=== PATIENT | male | born 1960 | race African-American/Black ===

== ENCOUNTER 2023-03-28 16:12 | Outpatient (AMB) | payer OTHER, SELFPAY ==
--- NOTE | 2023-03-28 16:21 | A.OFFPC_ITS ---
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: No Accompanied by: Daughter Allergies No Known Allergies Allergy (Verified 03/28/23 16:49) Medication List - Last Reconciled 03/28/23 by Alfonso Ramirez MD tamsulosin 0.4 mg PO DAILY Tobacco use date assessed: 03/28/23 Fall risk assessment: No Falls in past year Last assessed Fall Risk: 03/28/23 Dental Screening Dental Screen Date: 03/28/23 Did you have a dental visit in the last 12 months?: No Did you have a dental problem in the last 6 months where you did not have access to dental care?: No Was dental information given to patient?: No HPI Director Of Product Design Request PE HPI Details Patient comes in today for his annual physical examination and to establish care - is a new patient to the practice Patient states that he recently moved here from [facility] and that he mainly needs his Tamsulosin Rx refilled - has been on this Rx for about 5 to 6 years now Would also like to get a referral to see urology here locally as he has not seen a doctor yet since moving here to [facility] [place] (+) blurring of vision as well and states that he has been advised a couple of years ago that he has cataracts in his eyes He denies any headaches or dizziness Denies any chest pains, no shortness of breath No nausea/vomiting, no abdominal pain No change in bowel habits noted Denies any acute urinary symptoms as long as continues on his Tamsulosin States that he had his last screening colonoscopy done a few years ago but he cannot recall exactly when - thinks it might be close to about 10 years now Also needs his Mometasone cream Rx refilled - states that he uses this for some recurrent rash on his feet (in between his toes) PFSH Medical History Benign localized hyperplasia of prostate with urinary obstruction Hyperlipidemia Impaired fasting glucose Surgical History Hx of colonoscopy Social History Housing: House Patient Tobacco Use Status: Never used Tobacco e-Cigarette/Vaping Use: Never Used service: No Current occupational status: unemployed Current occupational exposures/hazards: No Cognitive needs: No Hearing needs: No Vision needs: No Questionnaire PHQ-9 Over the last 2 weeks, how often have you been bothered by any of the following problems? 1. Little interest or pleasure in doing things: not at all 2. Feeling down, depressed, or hopeless: not at all 3. Trouble falling or staying asleep, or sleeping too much: not at all 4. Feeling tired or having little energy: not at all 5. Poor appetite or overeating: not at all 6. Feeling bad about yourself - or that you are a failure or have let yourself or your family down: not at all 7. Trouble concentrating on things, such as reading the newspaper or watching television: not at all 8. Moving or speaking so slowly that other people could have noticed. Or the opp osite - being so fidgety or restless that you have been moving around a lot more than usual: not at all 9. Thoughts that you would be better off or of hurting yourself in some way: not at all Total score: 0 Depression Screening Interpretation: Negative Depression Screening Done: Yes 60549 - PHQ-9 Billing: Yes Source: Developed by Drs. Davion Alexander, Mickie Mclean, Familia Pablo and colleagues, with an educational alessandro from [employer]. Thrive Questionnaire Date Thrive assessed: 03/28/23 I am a: Patient What is your living situation today?: I have a steady place to live Within the past 12 months, did the food you bought not last and you didn't have the money to get more?: Never true Within the past 12 months, did you worry whether your food would run out before you got money to buy more?: Never true Do you have trouble paying for medicines?: No Do you have trouble getting transportation to medical appointments?: No Do you have trouble paying your heating and electricity bill?: No Do you have trouble taking care of your child, family member or friend?: No Do you have trouble with day-to-day activities such as bathing, preparing meals, shopping, managing finances, etc.?: No Are you currently unemployed and looking for a job?: No Are you interested in more education?: No Please select the resources that you would like help with: None Currently or been in a relationship where the following occur: no concerns reported THRIVE Score: 0 AUDIT C Alcohol Use Questionnaire (AUDIT-C) 1. How often do you have a drink containing alcohol?: Never 3. How often do you have six or more drinks on one occasion?: Never Total Score: 0 Score Reviewed/Action Taken: Yes NASH-7 AMB Questionnaire NASH-7 Date NASH - 7 assessed: 03/28/23 Feeling nervous, anxious, or on edge: 0 = Not at all Not being able to stop or control worryin = Not at all Worrying too much about different things: 0 = Not at all Trouble relaxin = Not at all Being so restless that it is hard to sit still: 0 = Not at all Becoming easily annoyed or irritable: 0 = Not at all Feeling afraid as if something awful might happen: 0 = Not at all Total NASH-7 score (0-4 normal; 5-9 mild; 10-14 moderate; 15-21 severe): 0 Source: Developed by Drs. Davion Alexander, Mickie Mclean, Familia Pablo and colleagues, with an educational alessandro from [employer]. Review of Systems Const Denies chills, Denies fatigue, Denies fever(s), Denies headache(s), Denies malaise and Denies weakness Eyes Denies blurry vision, Denies change in vision, Denies irritation and Denies itchy eyes ENT Denies dysphagia, Denies dizziness, Denies otalgia, Denies headache(s), Denies nasal congestion, Denies neck pain, Denies odynophagia and Denies sore throat Card Denies chest pain, Denies rapid heart rate, Denies irregular heart rhythm, Denies palpitations and Denies dyspnea Resp Denies chest congestion, Denies cough, Denies dyspnea and Denies wheezing GI Denies abdominal pain, Denies bloating, Denies constipation, Denies dysphagia, Denies heartburn, Denies diarrhea, Denies nausea, Denies odynophagia and Denies vomiting Denies hematuria, Denies difficulty urinating, Denies dysuria, Denies urinary frequency and Denies urinary urgency Musc Denies back pain, Denies arthralgias, Denies joint swelling, Denies muscle weakness and Denies neck pain Skin/Breast Denies change in pigmentation, Denies lesions, Denies rash and Denies unusual bruising Neuro Denies dizziness, Denies headache(s), Denies paresthesias and Denies weakness Endo Denies fatigue and Denies palpitations Aller/Immun Denies itchy eyes and Denies wheezing Physical exam (Primary Care) Vital Signs: Last Vital Signs Pulse 79 03/28/23 16:23 BP 132/70 03/28/23 16:23 Pulse Ox 97 03/28/23 16:23 Oxygen Delivery Method Room Air 03/28/23 16:23 BMI result Body Mass Index 23.3 Tobacco/Smoking Status: Tobacco use Status Tobacco use date assessed 03/28/23 03/28/23 16:32 Patient Tobacco Use Status Never used Tobacco 03/28/23 16:32 e-Cigarette/Vaping Use Never Used 03/28/23 16:32 PHQ-9: PHQ-9 Score PHQ-9: Total score 0 03/28/23 16:57 Depression Screening Interpretation: Negative Thrive Assessment: Date of Thrive Assessment Date Thrive assessed 03/28/23 03/28/23 16:32 Currently or been in a relationship where the following occur: no concerns reported Const General: no acute distress, alert and awake Orientation/consciousness: patient oriented x3 HENMT Head: Yes normocephalic and Yes atraumatic Ears: external ears normal, TM's normal bilaterally and EAC's normal General nose exam: No nasal discharge present Face and sinus: Yes normal facial exam and Yes sinuses nontender Teeth and gingiva: dentition normal Throat: Yes posterior oropharynx normal and Yes tonsils normal (no TP congestion) Eyes Eyelids: Yes eyelids normal Conjunctivae: conjunctivae normal Pupils: Equal, round and reactive pupils present EOM: EOMs intact bilaterally Neck Neck: Yes no lymphadenopathy and Yes supple Thyroid: Thyroid normal Resp Auscultation: clear to auscultation bilaterally, no rales and no wheezes Cardio Rate: regular rate Rhythm: regular rhythm Heart sounds: no murmurs GI Palpation (GI): Soft to palpation, nontender and No hepatosplenomegaly present Auscultation: normal bowel sounds General: Yes no CVA tenderness Back/Spine/Pelvis Back: no CVA tenderness Thoracic/Lumbar Spine: thoracic and lumbar spine normal to inspection Skin Lesions: no lesions Rashes: no rashes Neuro General: patient oriented x3, moves all extremities, no focal motor deficits and CN's II-XI intact bilaterally Cranial nerves: Yes Equal, round and reactive pupils present Cognition (Neuro): normal cognition Gait exam (Neuro): Normal gait present Extrem General: Yes no clubbing, cyanosis or edema Assessment and Plan Assessment & Plan (1) Annual physical exam: Code(s): Z00.00 - Encounter for general adult medical examination without abnormal findings Plan: Check labs Have instructed patient to try to obtain more information on when he last had his colonoscopy done and we will plan on having him get his repeat colonoscopy next year if the timing on when his next colonoscopy is due is close (2) Impaired fasting glucose: Code(s): R73.01 - Impaired fasting glucose Plan: Will check his FBS and HgbA1c for further evaluation Reinforced low calorie/low carb diet (3) Hyperlipidemia: Code(s): E78.5 - Hyperlipidemia, unspecified Qualifiers: Hyperlipidemia type: unspecified Qualified Code(s): E78.5 - Hyperlipidemia, unspecified Plan: Reinforced low cholesterol diet Will check his fasting lipids for follow up (4) Benign localized hyperplasia of prostate with urinary obstruction: Code(s): N40.1 - Benign prostatic hyperplasia with lower urinary tract symptoms; N13.8 - Other obstructive and reflux uropathy Plan: Continue Tamsulosin 0.4 mg Q HS - Rx refilled Will refer him to urology for further management (5) Dermatitis: Code(s): L30.9 - Dermatitis, unspecified Plan: Continue Mometasone 0.1% cream BID PRN - Rx refilled, per request (6) Vision impairment: Code(s): H54.7 - Unspecified visual loss Plan: (+) Hx of cataracts Will refer him to ophthalmology for further management Plan Follow up in 6 months Orders: Orders Comprehensive [place]. Panel Fast 03/28/23 E78.00 - Pure hypercholesterolemia, unspecified, Z00.00 - Encounter for general adult medical examination without abnormal findings Lipid Panel 03/28/23 E78.00 - Pure hypercholesterolemia, unspecified, Z00.00 - Encounter for general adult medical examination without abnormal findings TSH reflex Free T4 03/28/23 E78.00 - Pure hypercholesterolemia, unspecified, Z00.00 - Encounter for general adult medical examination without abnormal findings UA CC w/rflx Micro + Cult 03/28/23 R30.0 - Dysuria, Z00.00 - Encounter for general adult medical examination without abnormal findings Prostate Specific Antigen 03/28/23 N40.0 - Benign prostatic hyperplasia without lower urinary tract symptoms, Z00.00 - Encounter for general adult medical examination without abnormal findings Complete Blood Count Auto Diff 03/28/23 D64.9 - Anemia, unspecified, Z00.00 - Encounter for general adult medical examination without abnormal findings Vitamin D 25-OH Total 03/28/23 E55.9 - Vitamin D deficiency, unspecified, Z00.00 - Encounter for general adult medical examination without abnormal findings Hemoglobin A1c 03/28/23 R73.01 - Impaired fasting glucose, Z00.00 - Encounter for general adult medical examination without abnormal findings XR knee standing BI 03/28/23 M25.561 - Pain in right knee, M25.562 - Pain in left knee Referrals Urology Referral N13.8 - Other obstructive and reflux uropathy, N40.1 - Benign prostatic hyperplasia with lower urinary tract symptoms Ophthalmology Referral H54.7 - Unspecified visual loss Medications: New tamsulosin 0.4 mg PO DAILY 90 days 90 caps 1RF N13.8 - Other obstructive and reflux uropathy, N40.1 - Benign prostatic hyperplasia with lower urinary tract symptoms mometasone 0.1% 1 appl topical BID PRN 45 grams 3RF rash L30.9 - Dermatitis, unspecified Coding Level of Care Code New Pt Prev Care 40-64y(08821) Diagnoses Annual physical exam Z00.00 Impaired fasting glucose R73.01 Hyperlipidemia, unspecified hyperlipidemia type E78.5 Hyperlipidemia type: unspecified Benign localized hyperplasia of prostate with urinary obstruction N40.1; N13.8 Dermatitis L30.9 Vision impairment H54.7
[2023-03-28 16:23] VITALS: BP 132/70; PULSE 79; O2SAT 97; BMI 23.3
== END 2023-03-28 17:10 | disposition home or self-care (01) ==
PROVIDERS: PCP Internal Medicine; Visit Provider Internal Medicine
DX: Z00.00 Encounter for general adult medical examination without abnormal findings (principal); R73.01 Impaired fasting glucose; E78.5 Hyperlipidemia, unspecified; N40.1 Benign prostatic hyperplasia with lower urinary tract symptoms; N13.8 Other obstructive and reflux uropathy; L30.9 Dermatitis, unspecified; H54.7 Unspecified visual loss
CPT/HCPCS: 99386; 99387

== ENCOUNTER 2023-05-20 10:54 | Outpatient (AMB) | payer OTHER, SELFPAY ==
--- NOTE | 2023-05-20 11:02 | A.OFFVIS_ITS ---
Intake Intake Visit Reasons: BPH with LUTS Intake Note: New Patient presents today to establish treatment for: BPH w LUTS Meds- Tamsulosin Allergies to Antibiotic- No Known Allergies Blood Thinner- None Post Void Residual: 45ml Patient stated he wakes up about 3 times at night to urinate. Turkey Roll Maker Required: No Accompanied by: Daugther Allergies No Known Allergies Allergy (Verified 05/20/23 11:51) Medication List - Last Reconciled 05/20/23 by ADAM Hutchisnon- tamsulosin 0.8 mg (2 x 0.4 mg) PO DAILY 90 days HPI HPI Comments History of Present Illness Details Kaden is a pleasant 72 year old male patient of Dr. Ramirez?was accompanied by his daughter at today's office visit. He has a past medical history of BPH, hyperlipidemia, and impaired fasting glucose. He presents to the office today as a new patient for ongoing lower urinary tract symptoms. In discussion with the patient today he reports feeling incomplete bladder emptying, weak stream, and nocturia. He discusses these symptoms to have been present for many years. He reports having started Flomax many years ago and felt this was initially helpful however continues with weak urinary stream, nocturia, and feeling of incomplete bladder emptying. In office urinalysis results reviewed with the patient today. Microscopic hematuria noted. When asked he denies any previous history of smoking and or workplace known workplace chemical exposure. He otherwise denies urinary urgency, incontinence, hematuria, dysuria, foul smelling urine, flank pain, fever, and or chills. PVR 45 mLs. He does discuss having issues with ED in the past however is not sexually active with anyone at this time. He does report to be masturbating and having no issues obtaining and maintaining erections while doing so. YAMILETH; smooth and no suspicious nodules palpated. He otherwise offers no other issues or concerns at this time. [facility] Medical History Benign localized hyperplasia of prostate with urinary obstruction Hyperlipidemia Impaired fasting glucose Surgical History Hx of colonoscopy Social History Housing: House Patient Tobacco Use Status: Never used Tobacco e-Cigarette/Vaping Use: Never Used service: No Current occupational status: unemployed Current occupational exposures/hazards: No Cognitive needs: No Hearing needs: No Vision needs: No Review of Systems Const All systems reviewed & are unremarkable except as noted in HPI and below Physical Exam Const General: cooperative, healthy appearing, comfortable, no acute distress, well developed, alert and awake Nutritional Appearance: average body habitus Orientation/consciousness: patient oriented x3 Limitations: no limitations HEENT Head: Yes normal to inspection, Yes normocephalic and Yes atraumatic Ears: hearing grossly normal bilaterally Eyes General: appearance normal, both eyes and all related structures Neck Neck: Yes normal visual inspection and Yes trachea midline Chest Chest palpation & inspection: normal inspection of the chest Resp Effort & Inspection: normal respiratory effort and able to speak in complete sentences Cardio Rate: regular rate GI Inspection: Yes normal to inspection General: Yes no CVA tenderness Back/Spine/Pelvis Back: no CVA tenderness Skin General skin exam: no rashes or lesions noted Neuro General: patient oriented x3 Extrem General: Yes normal to inspection Psych Appearance: grossly normal and well kempt Mental Status: mental status grossly normal Speech and movement: Normal speech and movement present and Clear speech present Affect: normal affect Attitude: cooperative Thought process: Normal thought process present Thought content: Normal thought content present Insight: Fair insight present (Psych) Judgement: Fair judgement present (Psych) Office Procedures Post Void Residual Post Residual Void Post Void Residual (PVR): 45 [id number] Void Residual by ultrasound Results AMB Urinalysis, Automated UA Leukoctes 0 Tapan/uL Last Edit by Ragini Khan CMA on 05/20/23 11 :19 UA Nitrite Negative Last Edit by Ragini Khan CMA on 05/20/23 11: 19 UA Urobilinogen 0.2 mg/dL Last Edit by Ragini Khan CMA on 4 11:19 UA Protein 0 mg/dL Last Edit by Ragini Khan CMA on 05/20/23 11:19 UA pH 6.0 Last Edit by Ragini Khan [facility] on 05/20/23 11:19 UA Blood 10 Hang/uL Last Edit by Ragini Khan [facility] on 05/20/23 11:19 UA Specific [place] 1.010 Last Edit by Ragini Khan [facility] on 11:19 UA Ketone Negative Last Edit by Ragini Khan [facility] on 05/20/23 11:1 9 UA Bilirubin 0 mg/dL Last Edit by Ragini Khan [facility] on 05/20/23 11: 19 UA Glucose 0 mg/dL Last Edit by Ragini Khan [facility] on 05/20/23 11:19 Results Reviewed Results Reviewed: Laboratory Last Values Urine pH (Auto) 6.0 05/20/23 11:05 Specific [place] (Auto) 1.010 05/20/23 11:05 Urine Protein (Auto) 0 mg/dL 05/20/23 11:05 Glucose (UA)(Auto) 0 mg/dL 05/20/23 11:05 Urine Ketones (Auto) Negative 05/20/23 11:05 Urine Blood (Auto) 10 Hang/uL 05/20/23 11:05 Urine Nitrite (Auto) Negative 05/20/23 11:05 Urine Bilirubin (Auto) 0 mg/dL 05/20/23 11:05 Urine Urobilinogen (Auto) 0.2 mg/dL 05/20/23 11:05 Leukocyte Esterase (Auto) 0 [place]/uL 05/20/23 11:05 Assessment & Plan Assessment & Plan (1) Weak urinary stream: Code(s): R39.12 - Poor urinary stream (2) Feeling of incomplete bladder emptying: Code(s): R39.14 - Feeling of incomplete bladder emptying (3) Nocturia: Code(s): R35.1 - Nocturia Plan In office urinalysis results reviewed with the patient today; as noted above; will send for urine cytology PVR 45 mL. Discussed at length potential causes for lower urinary tract symptoms patient is experiencing. Discussed importance of limiting fluids 3-4 hours prior to bed to assist with decreasing episodes of nocturia. YAMILETH performed Discussed at length potential causes of microscopic hematuria; discussed surveillance monitoring verses further workup with imaging, cytology, and in office cystoscopy; risks and benefits of these interventions were discussed at length. Will increase Flomax to 0.8 mg daily Will obtain PSA for further assessment evaluation. Will obtain retroperitoneal ultrasound for further assessment evaluation. Discussed potential for near future in office urodynamics and or cystoscopy for further assessment evaluation. Discussed bladder triggers/irritants. Follow-up in 1-3 months with imaging and labs to be completed prior; or sooner with any issues, concerns, and or questions. Orders: Orders AMB Post Void Residual by ultrasound Today R33.9 - Retention of urine, unspecified Urine Cytology Today R31.29 - Other microscopic hematuria US retroperitoneal comp Today R35.1 - Nocturia, R39.12 - Poor urinary stream, R39.14 - Feeling of incomplete bladder emptying Prostate Specific Antigen Today R35.1 - Nocturia, R39.12 - Poor urinary stream, R39.14 - Feeling of incomplete bladder emptying AMB Urinalysis Automated Today R33.9 - Retention of urine, unspecified Medications: Changed From tamsulosin 0.4 mg PO DAILY 90 days 90 caps 1RF N13.8 - Other obstructive and reflux uropathy, N40.1 - Benign prostatic hyperplasia with lower urinary tract symptoms To tamsulosin 0.8 mg (2 x 0.4 mg) PO DAILY 180 caps 1RF 90 days N13.8 - Other obstructive and reflux uropathy, N40.1 - Benign prostatic hyperplasia with lower urinary tract symptoms Patient Instructions: The patient had an opportunity to ask questions regarding the treatment plan. All questions were answered. Physical exam, labs, and imaging were discussed and reviewed in detail. As well as risks, benefits, and discussion of treatment choices. No major barriers to understanding were identified. The patient expressed understanding and agreement with the above treatment plan. The patient was made aware they should contact our office by phone for worsening of their current condition, the appearance of new symptoms, or with any questions or concerns. Compliance is encouraged with any medications and follow up testing that is ordered. It is a privilege to be allowed the opportunity to participate in? your urological care.? Again, if you have any questions or concerns If you have any questions or concerns please do not hesitate to contact me. The office is [phone]. This note is constructed using voice recognition software. While every effort has been made to ensure accuracy secret code expert errors may have been included. Yours sincerely, ADAM Hutchinson- Coding Level of Care Code New Pt Level 4 (71330) Diagnoses Weak urinary stream R39.12 Feeling of incomplete bladder emptying R39.14 Nocturia R35.1 CPT Codes Post Residual Void - PVR CPT Code: 02551-Zrdh Void Residual by ultrasound ([id number]) Time Spent (min) 30
== END 2023-05-20 11:57 | disposition home or self-care (01) ==
PROVIDERS: PCP Internal Medicine; Visit Provider Nurse Practitioner Family
DX: R39.12 Poor urinary stream (principal); R39.14 Feeling of incomplete bladder emptying; R35.1 Nocturia
CPT/HCPCS: 99204

== ENCOUNTER 2023-05-20 10:54 | Outpatient (REF) | payer OTHER, SELFPAY ==
[2023-05-20 17:34] LABS: Urine Cytology See Pathology rpt
== END 2023-05-20 10:55 | disposition home or self-care (01) ==
LOC: HO.LAB 10:54
PROVIDERS: PCP Internal Medicine; Visit Provider Nurse Practitioner Family
DX: N40.1 Benign prostatic hyperplasia with lower urinary tract symptoms (principal); R39.14 Feeling of incomplete bladder emptying; R39.12 Poor urinary stream; R35.1 Nocturia; R33.8 Other retention of urine; R31.29 Other microscopic hematuria
CPT/HCPCS: 51798; 81003; 88112; 99202

== ENCOUNTER 2023-06-30 13:26 | Outpatient (REF) | payer OTHER, SELFPAY ==
--- NOTE | ~2023-06-30 | US_ITS ---
EXAMINATION: US RETROPERITONEAL COMPLETE (RENAL) CLINICAL INFORMATION: Nocturia. COMPARISON: None available. TECHNIQUE: Real-time imaging of the kidneys and bladder. Limited visualization due to bowel gas. FINDINGS: RIGHT KIDNEY: 7.6 x 3.6 x 4.6 cm (SAG x AP x TRV). No hydronephrosis. No renal calculi. Renal cortical thickness is normal. Limited visualization. LEFT KIDNEY: 8.0 x 4.0 x 4.8 cm (SAG x AP x TRV). No hydronephrosis. No renal calculi. Renal cortical thickness is normal. Limited visualization. BLADDER: Well-distended. Mild diffuse irregularity and thickening of the bladder wall. Bilateral ureteral jets are demonstrated. Prevoid bladder volume is 127 mL. Postvoid bladder volume is 39 mL. The prostate volume is 26.5 mL. US/US retroperitoneal comp IMPRESSION: 1. No hydronephrosis. No renal calculi. 2. Mild diffuse irregularity and thickening of the bladder wall. 3. Postvoid bladder volume is 39 mL.
== END 2023-06-30 13:27 | disposition home or self-care (01) ==
LOC: HO.US 13:26
PROVIDERS: PCP Internal Medicine; Visit Provider Nurse Practitioner Family
DX: R39.14 Feeling of incomplete bladder emptying (principal); R39.12 Poor urinary stream; R35.1 Nocturia
CPT/HCPCS: 76770

== ENCOUNTER 2023-07-15 11:22 | Outpatient (REF) | payer OTHER, SELFPAY ==
[2023-07-15 11:46] LABS: MANUAL DIFF FLAG NO
[2023-07-15 12:47] LABS: Basophils Percent Auto 0.5 % (0-2); Eosinophils Absolute Auto 0.1 X10*3/uL (0.0-0.4); Hematocrit 42.5 % (42.0-52.0); Hemoglobin 13.5 g/dl (14.0-18.0); Lymphocytes Absolute Auto 1.5 X10*3/uL (1.2-4.9); Lymphocytes Percent Auto 37.3 % (20-40); Mean Corpuscular HGB Conc 31.8 g/dl (31.0-36.0); Mean Corpuscular Hemoglobin 26.9 pg (27.0-33.0); Mean Corpuscular Volume 84.7 fL (80.0-98.0); Mean Platelet Volume 11.3 fL (9.4-12.4); Monocytes Absolute Auto 0.4 X10*3/uL (0.1-1.2); Monocytes Percent Auto 10.8 % (2-11); Neutrophils Percent Auto 49.4 % (45-73); Platelet Count 190 X10*3/uL (160-400); Red Blood Count 5.02 X10*6/uL (4.60-5.80); Red Cell Distribution Width 14.2 % (11.0-16.0)
[2023-07-15 12:53] LABS: Appearance Urine Clear; Color Urine Yellow; Glucose Urine UA Negative (Negative); Leukocyte Esterase Urine Negative (Negative); Nitrite Urine Negative (Negative); Urine Blood Negative (Negative); Urine Ketones Negative (Negative); Urine Protein Negative (Neg-Trace)
[2023-07-15 12:58] LABS: Estimated Average Glucose 131 mg/dL; Hemoglobin A1c % 6.2 % (<6.0)
[2023-07-15 13:47] LABS: Alanine Aminotransferase 17 U/L (0-40); Albumin Level 4.2 g/dL (3.5-5.0); Alkaline Phosphatase 105 U/L (39-117); Anion Gap 10 (12-20); Aspartate Amino Transferase 25 U/L (5-37); Bilirubin Total 0.3 mg/dL (0.0-1.0); Blood Urea Nitrogen 11 mg/dL (9-16); Calcium 9.8 mg/dL (8.4-10.2); Carbon Dioxide 29 mmol/L (22-29); Chloride 104 mmol/L (96-108); Cholesterol 209 mg/dL (<200); Estimated Glomerular Filt Rate > 60; Glucose Fasting 87 mg/dL (60-99); HDL Cholesterol 60 mg/dL (>40); LDL Cholesterol Calculated 138 mg/dL (<100); Potassium 4.3 mmol/L (3.3-5.1); Sodium 139 mmol/L (135-145); Total Protein 8.8 g/dL (6.5-8.0); Triglycerides 57 mg/dL (<150)
[2023-07-15 13:55] LABS: Prostate Specific Antigen 2.62 ng/mL (<0.05-4.0)
[2023-07-15 14:07] LABS: Vitamin D 25-OH Total 14.6 ng/mL (>30)
== END 2023-07-15 11:23 | disposition home or self-care (01) ==
LOC: HO.LAB 11:22
PROVIDERS: PCP Internal Medicine; Visit Provider Internal Medicine
DX: Z00.00 Encounter for general adult medical examination without abnormal findings (principal); E78.00 Pure hypercholesterolemia, unspecified; R73.01 Impaired fasting glucose; N40.0 Benign prostatic hyperplasia without lower urinary tract symptoms; Z12.5 Encounter for screening for malignant neoplasm of prostate; R30.0 Dysuria; E55.9 Vitamin D deficiency, unspecified
CPT/HCPCS: 36415; 80053; 80061; 81003; 82306; 83036; 84153; 84443; 85025

== ENCOUNTER 2023-09-09 12:11 | Outpatient (AMB) | payer OTHER, SELFPAY ==
--- NOTE | 2023-09-09 12:12 | A.OFFVIS_ITS ---
Intake Visit Reasons: 2m/US/PSA(set) Intake Note: Patient presents today for tele visit on: ultrasound results psa labs Imaging completed: 06/30/23 PSA: 2.62 Meds- Tamsulosin Allergies to Antibiotic- No Known Allergies Blood Thinner- None Rn Circulating Required: No Accompanied by: Daugther Allergies No Known Allergies Allergy (Verified 09/09/23 13:22) Medication List - Last Reconciled 09/09/23 by ADAM Hutchinson- tamsulosin 0.8 mg (2 x 0.4 mg) PO DAILY 90 days HPI Comments Details: Kaden is a pleasant 73 year old male patient of Dr. Ramirez?was accompanied by his daughter at today's office visit. He has a past medical history of BPH, hyperlipidemia, and impaired fasting glucose. He is being follow-up on today via telehealth for follow-up. Of note, patient was seen approximately 3 months ago presents to the office today as a new patient for ongoing lower urinary tract symptoms at which time a retroperitoneal ultrasound and PSA were ordered for further assessment evaluation as well as the patient's Flomax was increased to 0.8 mg daily. In discussion with the patient today he reports he continues with Flomax 0.4 mg daily as he feels feelings of incomplete bladder, weak urinary stream, and nocturia have somewhat improved since his last office visit here without any intervention. Recent retroperitoneal ultrasound results reviewed with the patient and his daughter today. Bilateral kidneys with no hydronephrosis or renal calculi. Mild diffuse irregularity and thickening of bladder wall. Postvoid bladder volume is approximately 40 mL. Prostate measures approximately 27 mLs. PSA 08/03 2.6. He discusses these symptoms to have been present for many years and feels they are manageable with 0.4 mg of Flomax daily. He otherwise denies urinary urgency, incontinence, hematuria, dysuria, foul smelling urine, flank pain, fever, and or chills. Microscopic hematuria noted during last office visit therefore urine was sent for urine cytology. These results were reviewed with the patient today. 06/03 Negative for high-grade urothelial carcinoma. He does discuss having issues with ED in the past however is not sexually active with anyone at this time in does not find this in issue at this time. He does report to be masturbating and having no issues obtaining and maintaining erections while doing so. He otherwise offers no other issues or concerns at this time. FORMERLY [facility], [facility]–1983 Medical History Benign localized hyperplasia of prostate with urinary obstruction Hyperlipidemia Impaired fasting glucose Surgical History Hx of colonoscopy Social History Housing: House Patient Tobacco Use Status: Never used Tobacco e-Cigarette/Vaping Use: Never Used service: No Current occupational status: unemployed Current occupational exposures/hazards: No Cognitive needs: No Hearing needs: No Vision needs: No Review of Systems Const All systems reviewed & are unremarkable except as noted in HPI and below Physical Exam Const General: cooperative Orientation/consciousness: patient oriented x3 Resp Effort & Inspection: able to speak in complete sentences Neuro General: patient oriented x3 Psych Mental Status: mental status grossly normal Speech and movement: Clear speech present Affect: normal affect Attitude: cooperative Thought process: Normal thought process present Insight: Fair insight present (Psych) Judgement: Fair judgement present (Psych) Telehealth Telehealth Telehealth Platform: Shahiya Location of provider rendering services: practice address Location of patient: address on file Patient Identification confirmed using: Name, : Yes Telehealth method: voice only Patient verbally consented to treatment: Yes Patient verbally consented to billing insurance company: Yes Patient informed of any privacy concerns related to visit: Yes Minutes spent on Phone/Video with Pt.: 20 Results Reviewed Results Reviewed: Date of Service: 06/30/23 EXAMINATION: US RETROPERITONEAL COMPLETE (RENAL) FINDINGS: RIGHT KIDNEY: 7.6 x 3.6 x 4.6 cm (SAG x AP x TRV). No hydronephrosis. No renal calculi. Renal cortical thickness is normal. Limited visualization. LEFT KIDNEY: 8.0 x 4.0 x 4.8 cm (SAG x AP x TRV). No hydronephrosis. No renal calculi. Renal cortical thickness is normal. Limited visualization. BLADDER: Well-distended. Mild diffuse irregularity and thickening of the bladder wall. Bilateral ureteral jets are demonstrated. Prevoid bladder volume is 127 mL. Postvoid bladder volume is 39 mL. The prostate volume is 26.5 mL. IMPRESSION: 1. No hydronephrosis. No renal calculi. 2. Mild diffuse irregularity and thickening of the bladder wall. 3. Postvoid bladder volume is 39 mL. Assessment & Plan Assessment & Plan (1) Bladder wall thickening: Code(s): N32.89 - Other specified disorders of bladder Category: Medical (2) Feeling of incomplete bladder emptying: Code(s): R39.14 - Feeling of incomplete bladder emptying Category: Medical (3) Weak urinary stream: Code(s): R39.12 - Poor urinary stream Category: Medical (4) Nocturia: Code(s): R35.1 - Nocturia Category: Medical Plan Recent retroperitoneal ultrasound results reviewed with the patient and his daughter today; as noted above. Recent PSA results reviewed with the patient today; as noted above. Discussed at length bladder wall thickening Patient reports to be happy with current voiding parameters on 0.4 mg of Flomax. Discussed at length further treatment options for lower urinary tract symptoms patient is experiencing. Discussed bladder triggers/irritants. Patient currently denies any bothersome urinary issues or concerns. Previous urine cytology results reviewed with the patient today. Follow-up in 6 months with [facility]; or sooner with any issues, concerns, and or questions. Patient Instructions: The patient had an opportunity to ask questions regarding the treatment plan. All questions were answered. Physical exam, labs, and imaging were discussed and reviewed in detail. As well as risks, benefits, and discussion of treatment choices. No major barriers to understanding were identified. The patient expressed understanding and agreement with the above treatment plan. The patient was made aware they should contact our office by phone for worsening of their current condition, the appearance of new symptoms, or with any questions or concerns. Compliance is encouraged with any medications and follow up testing that is ordered. It is a privilege to be allowed the opportunity to participate in? your urological care.? Again, if you have any questions or concerns If you have any questions or concerns please do not hesitate to contact me. The office is [phone]. This note is constructed using voice recognition software. While every effort has been made to ensure accuracy rfid strategist errors may have been included. Yours sincerely, RAUL Hutchinson Coding Level of Care Code Tele Est Pt Level 3 (96297) Diagnoses Bladder wall thickening N32.89 Feeling of incomplete bladder emptying R39.14 Weak urinary stream R39.12 Nocturia R35.1
== END 2023-09-09 12:35 | disposition home or self-care (01) ==
LOC: HO.HUSH 12:12
PROVIDERS: PCP Internal Medicine; Visit Provider Nurse Practitioner Family
DX: N32.89 Other specified disorders of bladder (principal); R39.14 Feeling of incomplete bladder emptying; R39.12 Poor urinary stream; R35.1 Nocturia
CPT/HCPCS: 99213

== ENCOUNTER → 2023-09-09 12:11 | Outpatient (BNVA) | payer OTHER, SELFPAY | PROVIDERS: PCP Internal Medicine; Visit Provider Nurse Practitioner Family ==

== ENCOUNTER 2023-09-19 15:44 | Outpatient (AMB) | payer OTHER, SELFPAY ==
--- NOTE | 2023-09-19 15:45 | A.OFFPC_ITS ---
Vital Signs 09/19/23 15:46 Height 5 ft 0.4 in Weight 114 lb 2 oz BMI 22.0 BP 104/54 L Blood Pressure Location Lt brachial Position Sitting Pulse 78 Pulse Source Pulse Oximeter Pulse Oximetry (%) 98 Oxygen Delivery Method Room Air Intake Visit Reasons: BPH, hyperlipidemia, IFG Intake Note: pt is requesting Mometasone Furoate cream 0.1%, requesting an different medication is not working well. Ongoing itchess in the back. Computer Operations Technician Required: No Accompanied by: Daughter Allergies No Known Allergies Allergy (Verified 09/19/23 16:31) Medication List - Last Reconciled 09/19/23 by Alfonso Ramirez MD tamsulosin 0.8 mg (2 x 0.4 mg) PO DAILY 90 days Tobacco use date assessed: 03/28/23 Dental Screening Dental Screen Date: 03/28/23 HPI BPH, hyperlipidemia, IFG HPI Details Patient comes in today for his follow up visit States that he feels okay He denies any headaches or dizziness Denies any chest pains, no shortness of breath No nausea/vomiting, no abdominal pain No change in bowel habits noted States that he's had an itchy rash on between his toes and on his feet for months now and he has been using the Mometasone cream that we prescribed him previously with no relief He has also recently broke out in some itchy lesions over his back - would like to know what he can use on these His daughter would also like for patient to have his hearing and ears checked as she has noticed that patient's hearing has declined lately He had his follow up labs done a couple of months ago - to discuss his results [facility] Medical History (Updated 09/20/23 @ 00:07 by Alfonso Ramirez MD) Vitamin D deficiency Benign localized hyperplasia of prostate with urinary obstruction Hyperlipidemia Impaired fasting glucose Surgical History Hx of colonoscopy Social History Housing: House Patient Tobacco Use Status: Never used Tobacco e-Cigarette/Vaping Use: Never Used service: No Current occupational status: unemployed Current occupational exposures/hazards: No Cognitive needs: No Hearing needs: No Vision needs: No Questionnaire Thrive Questionnaire Date Thrive assessed: 03/28/23 NASH-7 AMB Questionnaire NASH-7 Date NASH - 7 assessed: 03/28/23 Source: Developed by Drs. Davion Alexander, Mickie Mclean, Familia Pablo and colleagues, with an educational alessandro from [employer]. Review of Systems Const Denies chills, Denies fatigue, Denies fever(s) and Denies headache(s) ENT Denies dysphagia, Denies dizziness, Denies otalgia, Denies headache(s), Reports hearing loss, Denies neck pain, Denies odynophagia and Denies sore throat Card Denies chest pain, Denies palpitations and Denies dyspnea Resp Denies cough and Denies dyspnea GI Denies abdominal pain, Denies constipation, Denies dysphagia, Denies heartburn, Denies diarrhea, Denies nausea, Denies odynophagia and Denies vomiting Denies dysuria, Denies nocturia and Denies urinary frequency Musc Denies neck pain Skin/Breast Details: (+) itchy rash in between his toes and on his feet for months; (+) itchy rash over his back, on and off, recently Neuro Denies dizziness and Denies headache(s) Endo Denies fatigue and Denies palpitations Physical exam (Primary Care) Vital Signs: Last Vital Signs Pulse 78 09/19/23 15:46 BP 104/54 L 09/19/23 15:46 Pulse Ox 98 09/19/23 15:46 Oxygen Delivery Method Room Air 09/19/23 15:46 BMI result Body Mass Index 22.0 Tobacco/Smoking Status: Tobacco use Status Tobacco use date assessed 03/28/23 09/19/23 15:46 Patient Tobacco Use Status Never used Tobacco 09/19/23 15:46 e-Cigarette/Vaping Use Never Used 09/19/23 15:46 Thrive Assessment: Date of Thrive Assessment Date Thrive assessed 03/28/23 09/19/23 15:46 Const General: no acute distress and alert HENMT Ears: TM's normal bilaterally and EAC's normal Throat: Yes posterior oropharynx normal and Yes tonsils normal (no TP congestion) Neck Neck: Yes no lymphadenopathy and Yes supple Thyroid: Thyroid normal Resp Auscultation: clear to auscultation bilaterally, no rales and no wheezes Cardio Rate: regular rate Rhythm: regular rhythm Heart sounds: no murmurs GI Palpation (GI): Soft to palpation and nontender Auscultation: normal bowel sounds General: Yes no CVA tenderness Back/Spine/Pelvis Back: no CVA tenderness Thoracic/Lumbar Spine: No lumbar spinal tenderness Skin Other: scattered hypigmented plaque-like lesions on the upper back; (+) slightly macerated rash/lesions in between the toes of both feet and a few similar lesions on the ball of the feet Extrem General: Yes no clubbing, cyanosis or edema Results Reviewed Results Reviewed: Laboratory Tests 07/15/23 11:45 WBC 4.0 L Hgb 13.5 L Hct 42.5 Plt Count 190 Sodium 139 Potassium 4.3 Creatinine 1.04 Estimated GFR > 60 Fasting Glucose 87 Hemoglobin A1c % 6.2 H Calcium 9.8 AST 25 ALT 17 Triglycerides 57 Cholesterol 209 H LDL Cholesterol, Calc 138 H HDL Cholesterol 60 Prostate Specific Ag 2.62 25-OH Vitamin D Total 14.6 L TSH 1.80 Urine pH 6.0 Ur Specific [place] 1.010 Urine Protein Negative Urine Glucose (UA) Negative Urine Blood Negative Urine Nitrite Negative Ur Leukocyte Esterase Negative Assessment and Plan Assessment & Plan (1) Hyperlipidemia: Code(s): E78.5 - Hyperlipidemia, unspecified Qualifiers: Hyperlipidemia type: unspecified Qualified Code(s): E78.5 - Hyperlipidemia, unspecified Plan: Results of his labs done a couple of months ago reviewed and discussed with patient - have advised him that his cholesterol levels are higher than recommended Reinforced low cholesterol diet Will check his labs and fasting lipids in 4 to 5 months for follow up - advised that we may need to start him on cholesterol-lowering medications if his numbers do not improve over the next few months (2) Impaired fasting glucose: Code(s): R73.01 - Impaired fasting glucose Plan: Have advised patient that his HgbA1c is at 6.2% on his labs done back in July 2023, which places him as a borderline diabetic at least Discussed low calorie/low card diet Will check his FBS and HgbA1c in a few months for follow up - is also advised that we will need to consider medications to control his blood sugar if his numbers do not improve at his next visit (3) Benign localized hyperplasia of prostate with urinary obstruction: Code(s): N40.1 - Benign prostatic hyperplasia with lower urinary tract symptoms; N13.8 - Other obstructive and reflux uropathy Plan: Continue Tamsulosin 0.4 mg Q HS Follow up with urology as scheduled (4) Dermatitis: Code(s): L30.9 - Dermatitis, unspecified Plan: Continue Mometasone 0.1% cream BID PRN (5) Hearing loss: Code(s): H91.90 - Unspecified hearing loss, unspecified ear Qualifiers: Hearing loss type: unspecified Laterality: unspecified laterality Qualified Code(s): H91.90 - Unspecified hearing loss, unspecified ear Plan: Will refer him for hearing evaluation (6) Vitamin D deficiency: Code(s): E55.9 - Vitamin D deficiency, unspecified Plan: Will start him on Vitamin D3 2000 units QD (7) Tinea pedis: Code(s): B35.3 - Tinea pedis Qualifiers: Laterality: bilateral Qualified Code(s): B35.3 - Tinea pedis Plan: Will start him on Tolnaftate 1% powder apply to rash on feet TID (8) Tinea corporis: Comment: on the back Code(s): B35.4 - Tinea corporis Plan: Will start patient on Lotrisone cream BID (9) Colon cancer screening: Code(s): Z12.11 - Encounter for screening for malignant neoplasm of colon Plan: Patient states that it has been at least 10 years since he last had his colonoscopy Will refer him to GI for repeat colonoscopy Plan Follow up in 6 months Orders: Orders Lipid Panel 01/31/24 E78.00 - Pure hypercholesterolemia, unspecified Hemoglobin A1c 01/31/24 R73.01 - Impaired fasting glucose Complete Blood Count Auto Diff 01/31/24 D64.9 - Anemia, unspecified Comprehensive [place]. Panel Fast 01/31/24 E78.00 - Pure hypercholesterolemia, unspecified Vitamin D 25-OH Total 01/31/24 E55.9 - Vitamin D deficiency, unspecified Referrals Speech and Hearing Referral H91.90 - Unspecified hearing loss, unspecified ear Gastroenterology Referral Z12.11 - Encounter for screening for malignant neoplasm of colon Medications: New clotrimazole-betamethasone 1-0.05 % 1 appl topical BID 4 weeks 45 grams 1RF cholecalciferol (vitamin D3) 50 mcg PO DAILY 90 days 90 caps 3RF E55.9 - Vitamin D deficiency, unspecified tolnaftate 1% 1 appl topical TID 45 grams 1RF Coding Level of Care Code Est Pt Level 4 (33569) Diagnoses Hyperlipidemia, unspecified hyperlipidemia type E78.5 Hyperlipidemia type: unspecified Impaired fasting glucose R73.01 Benign localized hyperplasia of prostate with urinary obstruction N40.1; N13.8 Dermatitis L30.9 Hearing loss, unspecified hearing loss type, unspecified laterality H91.90 Hearing loss type: unspecified Laterality: unspecified laterality Vitamin D deficiency E55.9 Tinea pedis of both feet B35.3 Laterality: bilateral Tinea corporis B35.4 Colon cancer screening Z12.11
[2023-09-19 15:46] VITALS: BP 104/54; PULSE 78; O2SAT 98; BMI 22.0
== END 2023-09-19 16:39 | disposition home or self-care (01) ==
PROVIDERS: PCP Internal Medicine; Visit Provider Internal Medicine
DX: E78.5 Hyperlipidemia, unspecified (principal); R73.01 Impaired fasting glucose; N40.1 Benign prostatic hyperplasia with lower urinary tract symptoms; N13.8 Other obstructive and reflux uropathy; L30.9 Dermatitis, unspecified; H91.90 Unspecified hearing loss, unspecified ear; E55.9 Vitamin D deficiency, unspecified; B35.3 Tinea pedis; B35.4 Tinea corporis; Z12.11 Encounter for screening for malignant neoplasm of colon
CPT/HCPCS: 99214